=== PATIENT | female | born 1945 | race Caucasian/White ===

== ENCOUNTER 2017-07-31 19:01 | Inpatient (IN) | payer OTHER, MEDICAID ==
[~2017-07-31] VITALS: Ht 152.4 cm; Wt 53.1 kg
[2017-07-31 19:28] VITALS: BP 129/65
--- NOTE | 2017-07-31 19:35 | NUR ---
TO LOBBY, JENNY APONTE A/W HERBERT HO NOTED
[2017-07-31 21:44] LABS: HEMATOCRIT 32.5 % (36-48); HEMOGLOBIN 10.6 g/dL (12.0-16.0); MEAN CORPUSCULAR HEMOGLOBIN 29 pg (27-31); MEAN CORPUSCULAR HGB CONC 33 g/dL (33-37); MEAN CORPUSCULAR VOLUME 89 fL (80-94); PLATELET COUNT (AUTO) 47 K/uL (140-450); RED BLOOD CELL COUNT(AUTO) 3.66 MIL/uL (4.20-5.40); RED CELL DISTRIBUTION WIDTH 17.3 % (11.6-13.7); WHITE BLOOD COUNT (AUTO) 7.7 K/uL (4.8-10.8)
[2017-07-31 21:47] LABS: ANION GAP 13.8 (8-16); CARBON DIOXIDE 27.5 mmol/L (21-32); CREATININE 0.9 mg/dL (0.6-1.3); POTASSIUM 4.3 mmol/L (3.5-5.1)
[2017-07-31 21:50] LABS: PROTHROMBIN TIME 12.2 secs (10.8-13.4)
[2017-07-31 22:03] LABS: ALBUMIN 2.5 g/dL (3.4-5.0)
[2017-07-31 22:15] LABS: LYMPHOCYTES % (MANUAL) 59 % (20-46); MONOCYTES % (MANUAL) 3 % (5-12)
--- NOTE | 2017-07-31 22:59 | NUR ---
To bed 10.
--- NOTE | 2017-07-31 23:00 | NUR ---
72/F BIB FAMILY W C/O GENERALIZED WEAKNESS, DECREASED APPETITE X 6 DAYS, JAUNDICE X1. 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 PT NOTED WITH JAUNDICE. ABLE TO AMBULATE WITH STEADY GAIT WITH GENERALIZED WEAKNESS NOTED. AOX4, GCS 15. DENIES CP/SOB, N/V/D, FEVER/CHILLS. PMH: BONE MARROW CA
--- NOTE | 2017-08-01 01:32 | NUR ---
Patient appears to be resting comfortably in bed. Vital Signs within normal limits. Respirations even and unlabored.
[2017-08-01 02:37] LABS: AMYLASE 66 U/L (25-115); LIPASE 313 U/L (73-393)
[2017-08-01] MEDS ORDERED: PIPERACILLIN/TAZOBACTAM 3.375 GM in DEXTROSE 5% 50 ML IV ONE (02:45)
[2017-08-01] MEDS ORDERED: NACL 0.9% 1,000 ML IV ONE (02:45)
[2017-08-01] MEDS ORDERED: ACETAMINOPHEN 325 MG TAB PO PRN (03:15)
[2017-08-01] MEDS ORDERED: ONDANSETRON 4 MG/2 ML VIAL IVP PRN (03:15)
[2017-08-01] MEDS ORDERED: HYDROcodone/APAP 7.5/325 MG 1 TAB PO PRN (03:15)
[2017-08-01] MEDS ORDERED: PIPERACILLIN/TAZOBACTAM 3.375 GM VIAL IV ONE (03:17)
--- NOTE | 2017-08-01 03:45 | NUR ---
Patient will be admitted to care of [facility]. Admited to TELE. Will go to room 121B. Belongings list completed. BEDSIDE Report to RIOS RYDER. IV INFUSING
--- NOTE | 2017-08-01 03:55 | NUR ---
ADMITTED THIS 72 YEAR OLD FEMALE FROM ER PER JODEE WITH CC OF GENERALIZED WEAKNESS AND DECREASE APPETITE FOR 6 DAYS, AMBULATED TO ROOM AND WENT TO BR WITH STEADY GAIT, VOIDED FREELY WITH JONATHAN URINE 200ML, URINE SPECIMEN SENT TO LAB FOR TEST, ASSESSMENT DONE, DR WHITLEY AT BEDSIDE TALKING TO PT, VITAL SIGNS STABLE, PT CAN UNDERSTAND AND SPEAK THAI ADEQUATELY, DENIES ANY PAIN, JAUNDICED SKIN NOTED, SLIGHT TENDERNESS TO ABDOMEN ON PALPATION, MAINTAINED ON NPO EXCEPT MEDS, ORIENTED TO ROOM AND CALL LIGHT, SAFETY MEASURES IN PLACE, CALL LIGHT WITHIN REACH.
[2017-08-01 04:00] VITALS: BP 119/60
[2017-08-01] MEDS: NACL 0.9% 1,000 ML IV SCH ×2 (04:32→12:51)
--- NOTE | 2017-08-01 04:35 | NUR ---
IVF OF NS AT 50ML/H STARTED, MONITORED CLOSELY.
[2017-08-01] MEDS ORDERED: IBRU140C PO (04:58)
--- NOTE | 2017-08-01 05:40 | NUR ---
PT SEEN SLEEPING, NO SIGNS OF PAIN OR DISTRESS, IVF INFUSING WELL, IVF RATE CHANGED TO 100ML/H ORDERED, MONITORED CLOSELY.
--- NOTE | 2017-08-01 07:23 | NUR ---
PT AWAKE, NO SIGNS OF DISTRESS, REPORT GIVEN TO ALEKSEY VALDEZ FOR CONTINUITY OF CARE.
--- NOTE | 2017-08-01 07:25 | NUR ---
RECEIVED PATIENT REPORT AT BEDSIDE FROM NIGHT NURSE, PATIENT ON TELE MONITOR. IV NOTED ON THE LEFT AC WITH IVF'S INFUSING WELL, IV IS PATENT AND INTACT. SKIN INTACT. PATIENT DENIES PAIN. PATIENT WAS EXPLAINED POC FOR TODAY, HOSPITAL ENVIRONMENT AND USE OF CALL LIGHT FOR ASSISTANCE. THE BED IS IN LOW POSITION WITH CALL LIGHT WITHIN REACH. FALL AND SAFETY PRECAUTIONS IN PLACE.
[2017-08-01 07:39] LABS: HEMATOCRIT 27.3 % (36-48); HEMOGLOBIN 9.5 g/dL (12.0-16.0); MEAN CORPUSCULAR HEMOGLOBIN 31 pg (27-31); MEAN CORPUSCULAR HGB CONC 35 g/dL (33-37); MEAN CORPUSCULAR VOLUME 88 fL (80-94); PLATELET COUNT (AUTO) 35 K/uL (140-450); RED BLOOD CELL COUNT(AUTO) 3.12 MIL/uL (4.20-5.40); RED CELL DISTRIBUTION WIDTH 17.2 % (11.6-13.7); WHITE BLOOD COUNT (AUTO) 6.3 K/uL (4.8-10.8)
[2017-08-01 07:50] VITALS: BP 107/55
[2017-08-01 07:55] LABS: ANION GAP 15.1 (8-16); CARBON DIOXIDE 24.2 mmol/L (21-32); CREATININE 0.8 mg/dL (0.6-1.3); POTASSIUM 4.3 mmol/L (3.5-5.1)
[2017-08-01 08:05] LABS: FREE T4 (FREE THYROXINE) 1.32 ng/dL (0.76-1.46); MAGNESIUM 2.1 mg/dL (1.8-2.4); PHOSPHORUS 3.9 mg/dL (2.5-4.9); THYROID STIMULATING HORMONE 1.82 uIU/mL (0.34-3.74)
[2017-08-01 08:09] LABS: LYMPHOCYTES % (MANUAL) 55 % (20-46); MONOCYTES % (MANUAL) 5 % (5-12)
[2017-08-01 08:21] LABS: APPEARANCE,URINE CLEAR (CLEAR); BILIRUBIN,URINE 3+ (NEGATIVE); BLOOD, URINE NEGATIVE (NEGATIVE); COLOR,URINE YELLOW (YELLOW); LEUKOCYTE ESTERASE ,URINE TRACE (NEGATIVE); NITRITE, URINE NEGATIVE (NEGATIVE); UGLUCOSE NEGATIVE (NEGATIVE)
[2017-08-01 08:24] LABS: CHOL/HDL RATIO 25.9 (1-4.5)
[2017-08-01] MEDS: DOCUSATE SODIUM 100 MG GELCAP PO SCH ×2 (08:35→20:46)
[2017-08-01 08:37] LABS: RBC,URINE NONE SEEN /HPF (0-5); WBC,URINE 6-15 (FEW) /HPF (0-5)
--- NOTE | 2017-08-01 08:38 | NUR ---
ADMINISTERED SCHEDULED MEDICATIONS, PATIENT TOLERATED WELL. ALL NEEDS MET AT THIS TIME. BED IN LOW POSITION WITH CALL LIGHT WITHIN REACH.
[2017-08-01] MEDS ORDERED: LACTOBACILLUS RHAMNOSUS GG 1 EACH CAP PO SCH (09:00)
--- NOTE | 2017-08-01 10:00 | NUR ---
PATIENT WAS ASSISTED TO THE RESTROOM, PATIENT HAS STEADY GAIT, NO C/O PAIN AT THIS TIME. PATIENT IN BED NOW RESTING COMFORTABLY, BED IN LOW POSITION WITH CALL LIGHT WITHIN REACH.
--- NOTE | 2017-08-01 11:50 | NUR ---
DR CRENSHAW AT BEDSIDE WITH PATIENT.
[2017-08-01 12:00] VITALS: BP 99/49
[2017-08-01] MEDS: PIPER/TAZO 3.375GM/D5W PREMIX 50 ML IV SCH ×2 (12:00→18:59)
--- NOTE | 2017-08-01 12:04 | NUR ---
ADMINISTERED SCHEDULED MEDICATIONS, PATIENT TOLERATED WELL. IV ABX INFUSING WELL. ALL NEEDS MET AT THIS TIME. BED IN LOW POSITION WITH CALL LIGHT WITHIN REACH.
--- NOTE | 2017-08-01 12:15 | NUR ---
RECEIVED CALL FROM DR FLOWER DR ORDERED TO HAVE IGM ANTIBODY FOR DANIEL KLINE VIRUS AND VIRAL LOAD DNA CAP. DR VALDEZTIE AWARE AND TO PLACE ORDERS.
--- NOTE | 2017-08-01 14:00 | NUR ---
DR MORENO AT BEDSIDE WITH PATIENT.
--- NOTE | 2017-08-01 15:05 | NUR ---
PATIENT IN BED AND RESTING COMFORTABLY, FAMILY AT BEDSIDE, DENIES PAIN.
[2017-08-01 16:00] VITALS: BP 107/49
--- NOTE | 2017-08-01 16:10 | NUR ---
1552 CALL PLACED TO [employer] [phone] AND SPOKE WITH EXCHANGE WHO PROVIDED REFERENCE# [phone] AND SAID WILL PAGE LAUNDRY FOLDER CM AND IF NO CALL RECEIVED WITHIN 30 MINUTES TO CALL EXCHANGE BACK.
--- NOTE | 2017-08-01 16:49 | NUR ---
6282 RECEIVED CALL FROM CHRISTAL AT [facility] AND PROVIDED INFORMATION REGARDING PT NEEDS TRANSFER TO TERTIARY CARE. PER CHRISTAL SHE WILL INFORM ASSIGNED CM AND REQUESTED FACESHEET BE FAXED TO [phone]. PROVIDED CHRISTAL WITH DIRECT LINE TO [facility] AND RESIDENTS PHONE #. INFORMED CECILIA CHARGE NURSE AND DR RENE OF COMMUNICATION WITH [facility].
--- NOTE | 2017-08-01 17:13 | NUR ---
FAMILY AT BEDSIDE. PATIENT SHOWS NO S/S OF ACUTE DISTRESS AT THIS TIME. BED IN LOW POSITION WITH CALL LIGHT WITHIN REACH.
--- NOTE | 2017-08-01 19:05 | NUR ---
GAVE PATIENT REPORT AT BEDSIDE TO NIGHT NURSE. PATIENT ENDORSED IN STABLE CONDITION.
--- NOTE | 2017-08-01 19:30 | NUR ---
RECEIVED FROM AM RN IN BED AWAKE AND ALERT. WATCHING TV. TELUGU SPEAKING. CALL LIGHT WITH IN REACH. TELEMETRY MONITORING. LFA IVF SITE INTACT AND NO INFILTRATION NOTED.
--- NOTE | 2017-08-01 21:46 | NUR ---
PT. SIGNED AMA . ACCOMPANIED BY FAMILY MEMBERS, DAUGHTER IN LAW AND SON. MD RAMIREZ SEEN PT. AND TALKED WITH THEM PROS AND CONS. USED [employer] #[id number] WELL FLOW OPERATOR S[employer]EM TO EXPLAIN AMA PAPER WORKS FOR AMA TO HER. CHARGE NURSE AWARE. PARIMUTUEL TICKET SELLER AWARE.
--- NOTE | 2017-08-01 21:50 | NUR ---
PT. WHEELED TO THE FRONT BY SPECIAL SERVICES SUPERVISOR AND FAMILY MEMBERS. ALL BELONGINGS WITH PT. NOTHING LEFT BEHIND. IVF DISCONTINUED WITH TIP INTACT. COVERED WITH BAND AID. NO COMPLAINTS OF PAIN DONE. NO SOB. PT. SIGNED AMA AND BELONGINGS LIST.
--- NOTE | 2017-08-03 14:42 | NUR ---
CM NOTE RETRO REVIEW FAXED TO [facility] [place] [facility] / FAX# [phone]
[2017-08-03 15:09] LABS: HEPATITIS A ANTIBODY IGM Negative (Negative); HEPATITIS B SURFACE ANTIGEN Negative (Negative)
[2017-08-04 09:23] LABS: CMV IGM ANTIBODY <30.0 AU/mL (0.0-29.9)
== END 2017-08-01 21:45 | disposition left against medical advice (07) | DRG 444 ==
LOC: MED 19:01 → MTU 08-01 03:11
PROVIDERS: ADMIT Family Medicine Sports Medicine; ATTEND Family Medicine Sports Medicine
DX: K81.9 Cholecystitis, unspecified (principal); N17.0 Acute kidney failure with tubular necrosis; E43 Unspecified severe protein-calorie malnutrition; D69.59 Other secondary thrombocytopenia; C96.9 Malignant neoplasm of lymphoid, hematopoietic and related tissue, unspecified; E87.1 Hypo-osmolality and hyponatremia; D64.9 Anemia, unspecified; I07.1 Rheumatic tricuspid insufficiency; R17 Unspecified jaundice; B17.9 Acute viral hepatitis, unspecified; R16.1 Splenomegaly, not elsewhere classified; Z85.6 Personal history of leukemia; Z68.22 Body mass index [BMI] 22.0-22.9, adult; E78.00 Pure hypercholesterolemia, unspecified
CPT/HCPCS: 36415; 71045; 76700; 80048; 80053; 81001; 82140; 82150; 83036; 83516; 83605; 83690; 83735; 83880; 84100; 84439; 84443; 84484; 85025; 85610; 85730; 86308; 86644; 86704; 86709; 86803; 87040; 87081; 87086; 87340; 93005; 96365; 99285; J2543; J7030; J7060; Q0092